=== PATIENT | female | born 1965 ===

== ENCOUNTER 2019-01-27 09:53 | Outpatient (CLI) | payer OTHER ==
[~2019-01-27 09:53] MED LIST: FIORICET PO; VOLTAREM 50 MG PO
== END 2019-01-27 10:04 | disposition home or self-care (01) ==
LOC: RAD 09:53
DX: M15.0 Primary generalized (osteo)arthritis (principal); M50.21 Other cervical disc displacement, high cervical region; M50.220 Other cervical disc displacement, mid-cervical region, unspecified level; M50.23 Other cervical disc displacement, cervicothoracic region

== ENCOUNTER 2020-10-02 09:13 | Outpatient (CLI) | payer OTHER | END 2020-10-02 09:23 | disposition home or self-care (01) | LOC: RAD 09:13 | PROVIDERS: ATTEND Internal Medicine Rheumatology | DX: M25.521 Pain in right elbow (principal) ==

== ENCOUNTER 2022-04-07 09:17 | Outpatient (CLI) | payer OTHER | END 2022-04-07 09:39 | disposition home or self-care (01) | LOC: SONOGRAMA 09:17 | PROVIDERS: ATTEND Specialist | DX: D25.1 Intramural leiomyoma of uterus (principal); N85.01 Benign endometrial hyperplasia ==

== ENCOUNTER 2022-06-01 08:14 | Day surgery (SDC) | payer OTHER ==
[~2022-06-01] VITALS: Ht 167.6 cm; Wt 56.7 kg
[2022-06-01] MEDS ORDERED: IBU600 MG PO (10:25)
== END 2022-06-01 16:40 | disposition home or self-care (01) ==
LOC: CIR.AMB 08:14
PROVIDERS: ATTEND Obstetrics & Gynecology Gynecology
DX: N72 Inflammatory disease of cervix uteri (principal); G43.909 Migraine, unspecified, not intractable, without status migrainosus; R73.03 Prediabetes